=== PATIENT | male | born 1945 | race African-American/Black ===

== ENCOUNTER 2022-06-25 18:42 | Emergency (ER) | payer OTHER ==
[~2022-06-25] VITALS: Ht 182.9 cm; Wt 109.0 kg
[2022-06-25 18:43] VITALS: BP 175/96
[2022-06-25 21:39] LABS: BASOPHILS % 0.2 % (0.0-2.0); EOSINOPHILS % 1.8 % (0.0-5.0); HEMATOCRIT. 39.3 % (42.0-52.0); HEMOGLOBIN. 13.7 g/dL (14.0-18.0); LYMPHOCYTES % 25.1 % (20.0-50.0); MEAN CORPUSCULAR HEMOGLOBIN 33.3 pg (28.0-32.0); MEAN CORPUSCULAR VOLUME 95.4 fL (80.0-94.0); MONOCYTES % 6.9 % (2.0-8.0); PLATELET 171 x1000/uL (130-400); RED BLOOD CELL COUNT 4.12 mill/uL (4.7-6.1); RED CELL DISTRIBUTION WIDTH 14.2 % (11.6-14.6)
[2022-06-25 21:44] LABS: CHLORIDE 112 mEq/L (98-107)
== END 2022-06-25 22:22 | disposition left against medical advice (07) ==
LOC: ER 18:42
DX: R07.9 Chest pain, unspecified (principal); I10 Essential (primary) hypertension; F17.210 Nicotine dependence, cigarettes, uncomplicated
CPT/HCPCS: 36415; 71045; 80053; 83880; 84484; 85025; 93005; 99285